=== PATIENT | male | born 1975 | race Caucasian/White ===

== ENCOUNTER 2020-11-20 18:09 | Emergency (ER) | payer OTHER, SELFPAY ==
[2020-11-20 18:23] VITALS: BP 131/84; PULSE 90; RESP 14; TEMP 36.4; O2SAT 99
--- NOTE | 2020-11-20 19:16 | DI.RAD.S_ITS ---
PROCEDURE: XR TIBIA FIBULA LT 2V INDICATIONS: hurt leg with vacuum TECHNIQUE: 2 views of the tibia and fibula were acquired. COMPARISON: None. FINDINGS: Bones: No fractures or dislocations. No suspicious bony lesions. Soft tissues: No suspicious soft tissue calcifications or masses. Soft tissue swelling is seen anteriorly. No radiopaque foreign bodies are seen. IMPRESSION: No displaced fractures are seen. Soft tissue swelling can be seen anteriorly. Dictated by: Musa Moseley M.D. on 11/20/2020 at 19:51 Approved by: Musa Moseley M.D. on 11/20/2020 at 19:51
--- NOTE | 2020-11-20 21:12 | ED_ITS ---
HPI - Extremity Injury (Lower) General Chief Complaint: Extremity Injury, Lower Stated Complaint: LEFT LEG INJURY Time Seen by Provider: 11/20/20 21:00 Source: patient Mode of arrival: Ambulatory Limitations: no limitations History of Present Illness HPI Narrative: Patient is a 45-year-old male who presents with left samaniego injury. He was at work when a vaccum that is normally hooked up to pressure came off and hit his samaniego. He does him some tingling in his foot but able to move his toes and ambulate without difficulty. He has no medical problems. MD complaint: leg injury Related Data Home Medications Medication Instructions Recorded Confirmed No Known Home Medications 11/20/20 11/20/20 Allergies Allergy/AdvReac Type Severity Reaction Status Date / Time Sulfa (Sulfonamide Allergy Unknown unknown Verified 11/20/20 18:26 Antibiotics) Review of Systems Review of Systems Narrative: GENERAL: Denies chills,fever HEENT: Denies throat pain RESPIRATORY: Denies dyspnea, cough, wheezing CARDIOVASCULAR: Denies chest pain, palpitations GASTROINTESTINAL: Denies nausea, vomiting MUSCULOSKELETAL: See HPI SKIN: No rash, no laceration, no pruritus NEUROLOGIC: Denies weakness, dizziness, headache, numbness 8 point review of systems is negative except for those stated above and HPI Patient History Social History Smoking Status: Never smoker Smoking Status: Never smoker alcohol intake frequency: 0-2 drinks per day Substance Use Type: does not use Exam Initial Vital Signs Initial Vital Signs: Vital Signs Temperature 97.6 F 11/20/20 18:23 Pulse Rate 90 11/20/20 18:23 Respiratory Rate 14 11/20/20 18:23 Blood Pressure 131/84 11/20/20 18:23 Pulse Oximetry 99 11/20/20 18:23 GENERAL: Well-appearing, well-nourished and in no acute distress. CARDIOVASCULAR: peripheral pulses in tact, cap refill <2 sec RESPIRATORY: No respiratory distress, speaks in full sentences without difficulty EXTREMITIES: Normal range of motion, no clubbing or edema. Neurovascularly intact NEUROLOGICAL: Cranial nerves II through XII grossly intact. Normal gait and speech. SKIN: Left anterior samaniego contusion in a circular pattern no laceration. Strong distal pedal pulse. Able to plantar and dorsiflex anterior samaniego is soft pos terior calf is soft Course Orders Ordered: ED Orders 11/20/20 19:16 XR tibia fibula LT 2V Stat Vital Signs Vital signs: Vital Signs - 8 hr 11/20/20 18:23 11/20/20 21:27 Temperature 97.6 F Pulse Rate 90 64 Respiratory Rate 14 16 Blood Pressure 131/84 131/80 Pulse Oximetry 99 100 MDM - Extremity Injury (Lower) Imaging Data Extremity x-ray #1: Radiologist's Impression: PROCEDURE: XR TIBIA FIBULA LT 2V INDICATIONS: hurt leg with vacuum TECHNIQUE: 2 views of the tibia and fibula were acquired. COMPARISON: None. FINDINGS: Bones: No fractures or dislocations. No suspicious bony lesions. Soft tissues: No suspicious soft tissue calcifications or masses. Soft tissue swelling is seen anteriorly. No radiopaque foreign bodies are seen. IMPRESSION: No displaced fractures are seen. Soft tissue swelling can be seen anteriorly. Dictated by: Musa Moseley M.D. on 11/20/2020 at 19:51 MDM Narrative Medical decision making narrative: At this time no sign of compartment syndrome. He has circular contusion on the left anterior samaniego. Discharge Plan Departure Patient Disposition: Home Clinical Impression: Contusion Qualifiers: Encounter type: initial encounter Contusion area: lower leg Instructions: DI for Leg Pain Activity Restrictions/Additional Instructions: *You have been diagnosed with left leg contusion *What to do: Elevate, ice 20-30 minutes at a time. Expect to have increased swelling and soreness *Continue to take medications as directed Ibuprofen 800 mg every 8 hours if needed for [id number] pain *Follow up with your primary care provider in 2-3 days Or L&I physician *Return to ER if you should have increased swelling, severe pain, inability to move toes or severe pain with moving toes, significant hardening of area or any new, worsening or concerning symptoms Prescriptions: No Action No Known Home Medications RF: 0 Referrals: [facility] [Outside]
[2020-11-20 21:27] VITALS: BP 131/80; PULSE 64; RESP 16; O2SAT 100
== END 2020-11-20 21:28 | disposition home or self-care (01) ==
PROVIDERS: Emergency Provider Emergency Medicine
DX: S80.12XA Contusion of left lower leg, initial encounter (principal); W22.8XXA Striking against or struck by other objects, initial encounter; Y99.0 Civilian activity done for income or pay
CPT/HCPCS: 73590; 99283